=== PATIENT | male | born 1985 | race Caucasian/White ===

== ENCOUNTER 2017-03-20 13:44 | Emergency (ER) | payer BC ==
[~2017-03-20] VITALS: Ht 182.9 cm; Wt 90.9 kg
[2017-03-20 13:48] VITALS: BP 116/61
[2017-03-20] MEDS ORDERED: IBUPROFEN 800 MG TABLET PO ONE (14:15)
[2017-03-20] MEDS ORDERED: BACITRACIN 0.9 GM PACKET OINTMENT TP ONE (14:15)
== END 2017-03-20 14:22 | disposition home or self-care (01) ==
LOC: EMS 13:46
DX: S61.215A Laceration without foreign body of left ring finger without damage to nail, initial encounter (principal); W45.8XXA Other foreign body or object entering through skin, initial encounter; Y93.89 Activity, other specified; Y92.9 Unspecified place or not applicable; Y99.9 Unspecified external cause status
CPT/HCPCS: 99283